=== PATIENT | female | born 1990 | race Caucasian/White ===

== ENCOUNTER 2018-08-30 11:04 | Emergency (ER) | payer BC ==
--- NOTE | 2018-08-30 11:41 | ER ---
Nurse's Notes [facility] Name: Shira Curry Age: 28 yrs Sex: Female : 1990 Arrival Date: 08/30/2018 Time: 11:06 Bed 10 Private MD: Diagnosis: Acute upper respiratory infection, unspecified;Acute laryngitis;Acute suppurative otitis media Presentation: 08/30 11:19 Presenting complaint: Patient states: sore throat X 3 days, can't talk, also c/o left iw ear pain, fever yesterday. Transition of care: patient was not received from another setting of care. Onset of symptoms was August 27, 2018. Risk Assessment: Do you want to hurt yourself or someone else? Patient reports no desire to harm self or others. Initial Sepsis Screen: Does the patient meet any 2 criteria? No. Patient's initial sepsis screen is negative. Does the patient have a suspected source of infection? No. Patient's initial sepsis screen is negative. Care prior to arrival: None. 11:19 Method Of Arrival: Ambulatory iw 11:19 Acuity: MALIK 4 iw Triage Assessment: 11:15 General: Appears in no apparent distress. comfortable, Behavior is calm, cooperative. 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 - Social history:: Smoking status: Patient/guardian denies using tobacco. - Ebola Screening: : Patient negative for fever greater than or equal to 101.5 degrees Fahrenheit, and additional compatible Ebola Virus Disease symptoms Patient denies exposure to infectious person Patient denies travel to an Ebola-affected area in the 21 days before illness onset No symptoms or risks identified at this time. Screenin:50 Abuse screen: Denies threats or abuse. Nutritional screening: No deficits noted. rb1 Tuberculosis screening: No symptoms or risk factors identified. Fall Risk None identified. Assessment: 11:15 General: Appears in no apparent distress. comfortable, Behavior is calm, cooperative, rb1 Reports fever for. Pain: Complains of pain in left ear and throat Pain currently is 9 out of 10 on a pain scale. Pain began x 3 days. Neuro: Level of Consciousness is awake, alert, obeys commands, Oriented to person, place, time, situation. Cardiovascular: Capillary refill < 3 seconds is brisk in bilateral fingers. Respiratory: Reports cough that is productive, green sputum Airway is patent Respiratory effort is even, unlabored, Respiratory pattern is regular, symmetrical, Breath sounds are clear bilaterally. GI: Reports nausea. : No signs and/or symptoms were reported regarding the genitourinary system. EENT: Throat is reddened pain when she tries to talk. Derm: Skin is pink, warm \T\ dry. Vital Signs: 11:22 BP 96 / 51; Pulse 61; Resp 16 S; Temp 97.8(TE); Pulse Ox 98% on R/A; Pain 7/10; iw ED Course: 11:06 Patient arrived in ED. as 11:11 [facility]. jr8 11:11 Bran Boswell MD is Attending Physician. jr8 11:15 Patient has correct armband on for positive identification. Bed in low position. Call rb1 light in reach. Side rails up X 1. Pulse ox on. NIBP on. 11:21 Triage completed. iw 11:22 Arm band placed on. iw 11:46 Tnaa Doran, RN is Primary Nurse. rb1 11:46 No provider procedures requiring assistance completed. Patient did not have IV access rb1 during this emergency room visit. Administered Medications: No medications were administered Outcome: 11:40 Discharge ordered by . jr8 11:46 Patient left the ED. rb1 11:46 Discharged to home ambulatory, with friend. rb1 11:46 Condition: stable 11:46 Discharge instructions given to patient, Instructed on discharge instructions, follow up and referral plans. medication usage, Demonstrated understanding of instructions, follow-up care, medications, Prescriptions given X 4. Signatures: Araceli Whiting Irene, RN RN Antoni Mancera PA PA jr8 Tana Doran, TOSHIA RN rb1 Corrections: (The following items were deleted from the chart) 11:51 11:15 Respiratory: Reports cough that is productive, green sputum Airway is patent rb1 Respiratory effort is even, unlabored, Respiratory pattern is regular, symmetrical, rb1
--- NOTE | 2018-08-30 11:42 | EDPHYS ---
Physician Documentation [facility] Name: Shira Curry Age: 28 yrs Sex: Female : 1990 Arrival Date: 08/30/2018 Time: 11:06 Bed 10 Private MD: ED Physician Bran Boswell HPI: 08/30 11:41 This 28 yrs old Female presents to ER via Ambulatory with complaints of Sore jr8 Throat, Cough. 11:41 The patient presents with sore throat. The patient describes throat pain as raw. Onset: jr8 The symptoms/episode began/occurred gradually, 1 week(s) ago. Severity of symptoms: At their worst the symptoms were moderate, in the emergency department the symptoms are unchanged. Modifying factors: The symptoms are alleviated by nothing, the symptoms are aggravated by nothing. Associated signs and symptoms: Pertinent positives: cough, earache, fever. It is unknown whether or not the patient has had similar symptoms in the past. The patient has not recently seen a physician. 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 - Social history:: Smoking status: Patient/guardian denies using tobacco. - Ebola Screening: : Patient negative for fever greater than or equal to 101.5 degrees Fahrenheit, and additional compatible Ebola Virus Disease symptoms Patient denies exposure to infectious person Patient denies travel to an Ebola-affected area in the 21 days before illness onset No symptoms or risks identified at this time. ROS: 11:41 Constitutional: Positive for fever, malaise. jr8 11:41 ENT: Positive for ear pain, sore throat. 11:41 Respiratory: Positive for cough, Negative for dyspnea on exertion, shortness of breath, sputum production, wheezing. 11:41 All other systems are negative. jr8 Exam: 11:41 Eyes: Pupils equal round and reactive to light, extra-ocular motions intact. Lids and jr8 lashes normal. Conjunctiva and sclera are non-icteric and not injected. Cornea within normal limits. Periorbital areas with no swelling, redness, or edema. Neck: Trachea midline, no thyromegaly or masses palpated, and no cervical lymphadenopathy. Supple, full range of motion without nuchal rigidity, or vertebral point tenderness. No Meningismus. Cardiovascular: Regular rate and rhythm with a normal S1 and S2. No gallops, murmurs, or rubs. Normal PMI, no JVD. No pulse deficits. Respiratory: Lungs have equal breath sounds bilaterally, clear to auscultation and percussion. No rales, rhonchi or wheezes noted. No increased work of breathing, no retractions or nasal flaring. Abdomen/GI: Soft, non-tender, with normal bowel sounds. No distension or tympany. No guarding or rebound. No evidence of tenderness throughout. Back: No spinal tenderness. No costovertebral tenderness. Full range of motion. Skin: Warm, dry with normal turgor. Normal color with no rashes, no lesions, and no evidence of cellulitis. MS/ Extremity: Pulses equal, no cyanosis. Neurovascular intact. Full, normal range of motion. Neuro: Awake and alert, GCS 15, oriented to person, place, time, and situation. Cranial nerves II-XII grossly intact. Motor strength 5/5 in all extremities. Sensory grossly intact. Cerebellar exam normal. Normal gait. 11:41 ENT: External ear(s): are unremarkable, Ear canal(s): are normal, clear, TM's: bulging, on the left, erythema, that is moderate, on the left, fluid levels, on the right, Nose: External nose: no obvious acute abnormality, Nasal septum: is midline, Nasal mucosa: moist, Turbinates: are normal, Mouth: Lips: moist, Oral mucosa: pink and intact, moist, Gums: pink, Tongue: is moist, Posterior pharynx: Airway: patent, Tonsils: are normal in appearance, no enlargement, no erythema, no exudate, no ulcerations, Uvula: midline, non-edematous, no erythema, swelling, is not appreciated, erythema, is not appreciated. Vital Signs: 11:22 BP 96 / 51; Pulse 61; Resp 16 S; Temp 97.8(TE); Pulse Ox 98% on R/A; Pain 7/10; iw MDM: 11:12 Patient medically screened. jr8 11:39 Data reviewed: vital signs, nurses notes, and as a result, I will discharge patient. jr8 Data interpreted: Pulse oximetry: on room air is 98 %. Interpretation: normal. Counseling: I had a detailed discussion with the patient and/or guardian regarding: the historical points, exam findings, and any diagnostic results supporting the discharge/admit diagnosis, the need for outpatient follow up, a family practitioner, to return to the emergency department if symptoms worsen or persist or if there are any questions or concerns that arise at home. Administered Medications: No medications were administered Disposition: 16:49 Co-signature as Attending Physician, Bran Boswell MD. Disposition: 08/30/18 11:40 Discharged to Home. Impression: Acute upper respiratory infection, unspecified, Acute laryngitis, Acute suppurative otitis media. - Condition is Stable. - Discharge Instructions: Otitis Media, Adult, Upper Respiratory Infection, Adult. - Prescriptions for Augmentin 875- 125 mg Oral Tablet - take 1 tablet by ORAL route every 12 hours for 10 days; 20 tablet. Ibuprofen 800 mg Oral Tablet - take 1 tablet by ORAL route every 12 hours As needed take with food; 20 tablet. Tessalon Perles 100 mg Oral Capsule - take 1 capsule by ORAL route every 8 hours As needed; 15 capsule. Guaifenesin AC 10- 100 mg/5 mL Oral Liquid - take 10 milliliter by ORAL route every 4 hours As needed; 240 milliliter. - Medication Reconciliation Form, Thank You Letter, Antibiotic Education, Prescription Opioid Use form. - Follow up: Private Physician; When: 1 week; Reason: Recheck today's complaints, Continuance of care, Re-evaluation by your physician. - Problem is new. - Symptoms have improved. Signatures: Payton Boyel RN RN Antoni Farah PA PA jr8 Tana Doran RN RN rb1 Bran Boswell MD MD Corrections: (The following items were deleted from the chart) 11:46 11:40 08/30/2018 11:40 Discharged to Home. Impression: Acute upper respiratory rb1 infection, unspecified; Acute laryngitis; Acute suppurative otitis media. Condition is Stable. Forms are Medication Reconciliation Form, Thank You Letter, Antibiotic Education, Prescription Opioid Use. Follow up: Private Physician; When: 1 week; Reason: Recheck today's complaints, Continuance of care, Re-evaluation by your physician. Problem is new. Symptoms have improved. jr8
== END 2018-08-30 11:46 | disposition home or self-care (01) ==
LOC: ER 11:04
DX: J04.0 Acute laryngitis (principal); H66.003 Acute suppurative otitis media without spontaneous rupture of ear drum, bilateral; J06.9 Acute upper respiratory infection, unspecified; Z88.2 Allergy status to sulfonamides
CPT/HCPCS: 99283